=== PATIENT | male | born 2000 | race Caucasian/White ===

== ENCOUNTER 2022-06-12 12:59 | Emergency (ER) | payer OTHER ==
[~2022-06-12] VITALS: Ht 175.3 cm; Wt 56.7 kg
[2022-06-12] MEDS ORDERED: IBUPROFEN 600 MG TAB PO STA (13:13)
[2022-06-12] MEDS ORDERED: NAPROSYN500 MG PO (14:11)
[2022-06-12] MEDS ORDERED: METHOCARBAMOL500 MG PO (14:11)
== END 2022-06-12 15:03 | disposition home or self-care (01) ==
LOC: ER 13:07
DX: S00.83XA Contusion of other part of head, initial encounter (principal); S29.011A Strain of muscle and tendon of front wall of thorax, initial encounter; V43.52XA Car driver injured in collision with other type car in traffic accident, initial encounter; Y92.488 Other paved roadways as the place of occurrence of the external cause
CPT/HCPCS: 71101; 99283